=== PATIENT | female | born 1960 | race Caucasian/White ===

== ENCOUNTER 2019-07-04 14:38 | Emergency (ER) | payer OTHER ==
[~2019-07-04] VITALS: Ht 157.5 cm; Wt 55.8 kg
--- NOTE | 2019-07-04 14:50 | NUR ---
ABDOULAYE Garcia FROM MD OFFICE C/O LOW BLOOD SUGAR 58, ORAL GLUCOSE GIVEN FRUIT STUFFER BG 66. PATIENT WEAK, VERBALLY RESPONSIVE OX3, NO DSITRESS NOTED. CHANGED INTO A GOWN, ATTACHED TO THE SECURED ENTRANCE MONITOR. WAITING FOR MD NAVA.
--- NOTE | 2019-07-04 15:00 | NUR ---
PATIENT SEEN AND EVALUATED BY DR. OATES.
--- NOTE | 2019-07-04 15:07 | NUR ---
BG REPEATED 59, DR. OATES MADE AWARE.
--- NOTE | 2019-07-04 15:10 | NUR ---
Serge willoughby in [facility] - 07/04/19 at 1531 by ALICIA PATIENT SEEN BY DR. OATES.
[2019-07-04] MEDS ORDERED: DEXTROSE 50%-WATER 50 ML DISP.SYRIN ONE (15:12)
[2019-07-04] MEDS ORDERED: ONDANSETRON HCL/PF 4 MG/2 ML VIAL ONE (15:12)
[2019-07-04 15:22] LABS: BASOPHILS # (AUTO) 0.1 /CMM (0.0-0.2); BASOPHILS % (AUTO) 0.8 % (0.0-2.0); EOSINOPHILS % (AUTO) 1.1 % (0.0-6.0); HEMATOCRIT 38 % (33-45); HEMOGLOBIN 12.9 g/dL (11.5-14.8); LYMPHOCYTES # (AUTO) 1.8 /CMM (0.8-4.8); LYMPHOCYTES % (AUTO) 18.7 % (20.0-44.0); MEAN CORPUSCULAR HGB CONC 34 g/dl (31.0-36.0); MEAN CORPUSCULAR VOLUME 84 fL (82-100); MONOCYTES # (AUTO) 0.5 /CMM (0.1-1.30); MONOCYTES % (AUTO) 5.6 % (2.0-12.0); NEUTROPHILS # (AUTO) 6.9 /CMM (1.8-8.9); NEUTROPHILS % (AUTO) 73.8 % (43.0-81.0); PLATELET COUNT (AUTO) 269 /CMM (150-450); RED BLOOD CELL COUNT(AUTO) 4.51 MIL/uL (4.0-5.2); WHITE BLOOD COUNT (AUTO) 9.4 K/uL (4.3-11.0)
[2019-07-04] MEDS ORDERED: IV NS 0.9% 1,000 ML BAG IV ONE (15:30)
[2019-07-04] MEDS ORDERED: ONDANSETRON HCL/PF 4 MG/2 ML VIAL IVP ONE (15:30)
[2019-07-04] MEDS ORDERED: DEXTROSE 50%-WATER 50 ML DISP.SYRIN IVP ONE (15:30)
[2019-07-04 15:49] LABS: ALANINE AMINOTRANSFERASE 27 U/L (12-78); ALKALINE PHOSPHATASE 116 U/L (46-116); ASPARTATE AMINOTRANSFERASE 20 U/L (15-37); BILIRUBIN,DIRECT 0.1 mg/dL (0.0-0.2); BILIRUBIN,TOTAL 0.3 mg/dL (0.2-1.0); CARBON DIOXIDE 28 mmol/L (21-32); CHLORIDE 103 mmol/L (98-107); CREATININE 0.6 mg/dL (0.6-1.3); GLUCOSE 64 mg/dL (74-106); LIPASE 176 U/L (73-393); POTASSIUM 3.7 mmol/L (3.5-5.1); SODIUM SERUM 139 mmol/L (136-145); TOTAL PROTEIN, SERUM 7.7 g/dL (6.4-8.2)
--- NOTE | 2019-07-04 16:33 | NUR ---
PATIENT BG RE-CHECK 143. DR. OATES MADE AWARE
--- NOTE | 2019-07-04 16:35 | NUR ---
UA COLLECTED AND SENT TO LAB
[2019-07-04 17:18] LABS: APPEARANCE,URINE Clear (CLEAR); BILIRUBIN,URINE Negative (NEGATIVE); BLOOD, URINE Negative Ery/uL (NEGATIVE); COLOR,URINE Yellow (YELLOW); KETONES,URINE Negative (NEGATIVE); LEUKOCYTE ESTERASE ,URINE Negative (NEGATIVE); NITRITE, URINE Negative (NEGATIVE); PROTEIN,URINE Negative (NEGATIVE); UGLUCOSE 100 MG/DL mg/dL (NEGATIVE); UROBILINOGEN,URINE 0.2 EU/dL (0.2)
[2019-07-04 17:22] LABS: ALBUMIN 3.6 g/dL (3.4-5.0)
[2019-07-04 17:29] LABS: UREA NITROGEN, BLOOD 18 mg/dL (7-18)
[2019-07-04 17:35] VITALS: BP 129/78
--- NOTE | 2019-07-04 17:35 | NUR ---
IV removed. Catheter intact and site benign. Pressure and 4x4 applied to site. No bleeding noted.Patient discharged to home in stable condition. Written and verbal after care instructions given. Patient verbalizes understanding of instruction.
== END 2019-07-04 17:36 | disposition home or self-care (01) ==
LOC: ER 14:48
DX: E11.649 Type 2 diabetes mellitus with hypoglycemia without coma (principal); G93.41 Metabolic encephalopathy; R41.0 Disorientation, unspecified; I10 Essential (primary) hypertension; I25.10 Atherosclerotic heart disease of native coronary artery without angina pectoris; I44.0 Atrioventricular block, first degree; Z95.5 Presence of coronary angioplasty implant and graft
CPT/HCPCS: 36415; 71045; 80048; 80076; 81001; 82962 ×2; 83690; 84484; 85025; 93005; 96361; 96374; 96375; 99284; J2405; J7030; 81000-TC